=== PATIENT | male | born 1950 | race Caucasian/White ===

== ENCOUNTER 2016-11-12 08:26 | Emergency (ER) | payer OTHER ==
[~2016-11-12] VITALS: Ht 170.2 cm; Wt 108.0 kg
[~2016-11-12 08:26] MED LIST: ASPI325T PO; CITA20 PO; GABA600T PO; METF500 PO; MOBI7.5T PO; NORC10TA2 PO; TAB-TAB PO; VITA100T65 PO
[2016-11-12 08:30] VITALS: BP 195/101; PULSE 77; RESP 15; TEMP 98.3; O2SAT 96
[2016-11-12] MEDS ORDERED: PANT40TA3 PO (08:52)
[2016-11-12] MEDS ORDERED: NATU400T PO (08:52)
[2016-11-12] MEDS ORDERED: MULT1TAB85 PO (08:52)
[2016-11-12] MEDS ORDERED: METF500T PO (08:52)
[2016-11-12] MEDS ORDERED: TIZA4TAB PO (08:52)
[2016-11-12] MEDS ORDERED: ASPI325T PO (08:52)
[2016-11-12] MEDS ORDERED: HYDR-3366 PO (08:52)
[2016-11-12] MEDS ORDERED: PRAV40TA2 PO (08:52)
[2016-11-12] MEDS ORDERED: GABA600T PO (08:52)
--- NOTE | 2016-11-12 08:55 | PD ---
HPI Chief Complaint: Injury Time Seen by Provider: 08:41 Travel History International Travel<30 days: No Contact w/Intl Traveler<30days: No Traveled to known affect area: No History of Present Illness HPI 66-year-old male with history of left shoulder replacement many years ago, frequent left shoulder dislocation, presents to the ER today because he states that he was reaching above head and his left shoulder dislocated again this morning. He denies any other issues or injuries. He states the pain is currently a 5 out of 10, hurts with movement. Modifying Factors: None Associated Signs & Symptoms: Left shoulder dislocation Risk Factors: History of shoulder dislocations, status post left shoulder replacement PFSH Past Medical History Anxiety: Yes Diabetes: Yes Patient Takes Glucophage: Yes Influenza Vaccination: No ?: Not Past Surgical History Cholecystectomy: Yes Social History Alcohol Use: Yes Tobacco Use: No Substance Use: No Allergies-Medications (Allergen,Severity, Reaction): Coded Allergies: No Known Allergies (Unverified , 11/12/16) Reported Meds & Prescriptions Reported Meds & Active Scripts Active Reported Aspirin 325 Mg Tab 325 Mg PO DAILY Multivitamin Men (Multiple Vitamins W/ Minerals) 1 Tab Tab 1 Tab PO DAILY Vitamin E 400 Unit Tab 400 Units PO DAILY Tizanidine (Tizanidine HCl) 4 Mg Tab 4 Mg PO TID Pravastatin 40 Mg Tab 40 Mg PO DAILY Gabapentin 600 Mg Tab 600 Mg PO TID Pantoprazole (Pantoprazole Sodium) 40 Mg Tab 40 Mg PO DAILY Metformin (Metformin HCl) 500 Mg Tab 500 Mg PO DAILY With a meal [place] (Hydrocodone-Acetaminophen) 10-325 Mg Tab 1 Tab PO Q8HR PRN Review of Systems Except as stated in HPI: all other systems reviewed are Neg Physical Exam Narrative GENERAL: Pleasant elderly white male patient currently in moderate distress, holding his left shoulder to the side flexed. Awake and oriented 3. SKIN: Warm and dry. HEAD: Atraumatic. Normocephalic. EYES: Pupils equal and round. No scleral icterus. No injection or drainage. ENT: No nasal bleeding or discharge. Mucous membranes pink and moist. NECK: Trachea midline. No JVD. CARDIOVASCULAR: Regular rate and rhythm. No murmur appreciated. RESPIRATORY: No accessory muscle use. Clear to auscultation. Breath sounds equal bilaterally. GASTROINTESTINAL: Abdomen soft, non-tender, nondistended. Hepatic and splenic margins not palpable. MUSCULOSKELETAL: No obvious deformities. No clubbing. No cyanosis. No edema. NEUROLOGICAL: Awake and alert. No obvious cranial nerve deficits. Motor grossly within normal limits. Normal speech. PSYCHIATRIC: Appropriate mood and affect; insight and judgment normal. Left shoulder: Humeral head is palpable anterior to the joint. He is unable to abduct or rotate the shoulder. He is neurovascularly intact with good pulses below the shoulder area. Data Data Last Documented VS Vital Signs Date Time Temp Pulse Resp B/P Pulse Ox O2 Delivery O2 Flow Rate FiO2 11/12/16 08:48 Room Air 11/12/16 08:30 98.3 77 15 195/101 96 Orders Shoulder, Complete (>2vws) (11/12/16 08:45) [facility] Medical Decision Making Medical Screen Exam Complete: Yes Emergency Medical Condition: Yes Medical Record Reviewed: Yes Differential Diagnosis Left shoulder pain/dislocation Narrative Course Left shoulder was reduced by me in the ER. Patient tolerated procedure well. X -ray was done post procedure. It shows good alignment. At this point, my plan would be to release the patient with follow-up to orthopedics. Return for any worsening in pain or new symptoms as needed. The plan has been discussed with him and he states understanding. Procedures Procedure Narrative Left shoulder dislocation/reduction: Patient is placed in a seated position, and left shoulder was externally rotated and humeral head was reduced back in to anatomical position. Patient tolerated procedure well. He was able to adduct and rotate shoulder after the procedure. Neurovascularly intact with good pulses postprocedure. Diagnosis Primary Impression: Recurrent dislocation, left shoulder Med/Other Pt SpecificInfo: Prescription(s) given Scripts Hydrocodone-Acetaminophen (Lortab)5-325 Mg Tab1 Tab PO Q6H PRN (PAIN) #10 TAB Ref 0 Prov:Rony Rodriguez MD 11/12/16 Disposition: 01 DISCHARGE HOME Condition: Stable Rony Rodriguez MD Nov 12, 2016 08:55
--- NOTE | 2016-11-12 09:14 | RADHPO ---
EXAM DATE/TIME: 11/12/2016 08:47 [facility] COMPARISON: SHOULDER LEFT COMPLETE (>2VWS), May 28, 2016, 14:56. INDICATIONS : Left shoulder pain. Patient states it popped out of place. MEDICAL HISTORY : Left shoulder dislocation. SURGICAL HISTORY : Left shoulder replacment. ENCOUNTER: Initial ACUITY: 1 day PAIN SCORE: 3/10 LOCATION: Left shoulder. FINDINGS: Multiple view examination of the left shoulder demonstrates stable appearance of a total shoulder pro sthesis without evidence of fracture or dislocation. . Bony mineralization is normal. CONCLUSION: Stable appearance of a total left shoulder prosthesis with anatomic alignment.. Erica Dowling MD on November 12, 2016 at 9:11 Board Certified Radiologist. This report was verified electronically.
[2016-11-12] MEDS ORDERED: HYDR-3533 PO (09:19)
== END 2016-11-12 09:31 | disposition home or self-care (01) ==
LOC: PHED 08:26
DX: M24.412 Recurrent dislocation, left shoulder (principal)
CPT/HCPCS: 23650; 73030

== ENCOUNTER 2017-03-05 14:21 | Emergency (ER) | payer OTHER ==
[~2017-03-05] VITALS: Ht 170.2 cm; Wt 109.9 kg
[~2017-03-05 14:21] MED LIST changes: -CITA20 PO; +HYDR-3366 PO; +HYDR-3533 PO; -METF500 PO; +METF500T PO; -MOBI7.5T PO; +MULT1TAB85 PO; +NATU400T PO; -NORC10TA2 PO; +PANT40TA3 PO; +PRAV40TA2 PO; -TAB-TAB PO; +TIZA4TAB PO; -VITA100T65 PO
[2017-03-05 14:26] VITALS: BP 152/113; PULSE 98; RESP 18; TEMP 98.4; O2SAT 95
[2017-03-05] MEDS ORDERED: VITA100T65 PO (14:36)
[2017-03-05] MEDS ORDERED: OXYC1CAP PO (14:36)
[2017-03-05] MEDS ORDERED: FAMOTIDINE 20 MG/2 ML VIAL IV PUSH ONE (14:45)
[2017-03-05] MEDS ORDERED: methylPREDNISolone SOD SUCC 125 MG/2 ML VIAL IVP ONE (14:45)
[2017-03-05] MEDS ORDERED: diphenhydrAMINE HCL 50 MG/ML VIAL IVP ONE (14:45)
--- NOTE | 2017-03-05 14:59 | PD ---
HPI Chief Complaint: Skin Problem Time Seen by Provider: 14:56 Travel History International Travel<30 days: No Contact w/Intl Traveler<30days: No Traveled to known affect area: No History of Present Illness HPI 66-year-old male that presents to the ED for evaluation of possible skin allergic reaction. Patient has a rash that he developed today. Patient states taking no new medications. He did have recent surgery on his left shoulder about a week ago. Patient has had no issues since. Patient actually has an appointment with his surgeon tomorrow. Patient had surgery on his shoulder secondary to multiple dislocations. He states that the only thing that has changes his Lortab was changed to oxycodone and he is taken this before. He denies any new foods, clothes, perfumes or environments. Per patient seemed like it started on his head and any movement to his body. Patient has a remote arms, torso as well as the legs. No fevers chills or sweats. No chest pain or shortness of breath. No recent travel. No allergies to medication. PFSH Past Medical History Hx Anticoagulant Therapy: Yes Anxiety: Yes Cardiovascular Problems: Yes Cerebrovascular Accident: Yes Diabetes: Yes Patient Takes Glucophage: Yes Past Surgical History Cholecystectomy: Yes Social History Alcohol Use: Yes Tobacco Use: No Substance Use: No Allergies-Medications (Allergen,Severity, Reaction): Coded Allergies: No Known Allergies (Unverified , 03/05/17) Reported Meds & Prescriptions Reported Meds & Active Scripts Active Epipen 2-Coy Inj (Epinephrine) 0.3 Mg/0.3 Ml Pfpen 0.3 Mg SQ ONCE PRN Ranitidine (Ranitidine HCl) 150 Mg Tab 150 Mg PO BID Vistaril (Hydroxyzine Pamoate) 50 Mg Cap 50 Mg PO QID PRN Prednisone 20 Mg Tab 20 Mg PO BID Reported Vitamin E 100 Unit Tab 100 Units PO DAILY Oxycodone (Oxycodone HCl) 5 Mg Cap 5 Mg PO Q6H PRN Aspirin 325 Mg Tab 325 Mg PO DAILY Gabapentin 600 Mg Tab 600 Mg PO TID Pantoprazole (Pantoprazole Sodium) 40 Mg Tab 40 Mg PO DAILY Metformin (Metformin HCl) 500 Mg Tab 500 Mg PO DAILY With a meal Review of Systems Except as stated in HPI: all other systems reviewed are Neg Physical Exam Narrative GENERAL: SKIN: Warm and dry. Patient has what appears to be a heavy-looking rash on the upper and lower extremities. Also the back and torso. Pruritic and not painful. HEAD: Atraumatic. Normocephalic. EYES: Pupils equal and round. No scleral icterus. No injection or drainage. ENT: No nasal bleeding or discharge. Mucous membranes pink and moist. Tongue is midline. No uvula deviation. NECK: Trachea midline. No JVD. CARDIOVASCULAR: Regular rate and rhythm. RESPIRATORY: No accessory muscle use. Clear to auscultation. Breath sounds equal bilaterally. GASTROINTESTINAL: Abdomen soft, non-tender, nondistended. Hepatic and splenic margins not palpable. MUSCULOSKELETAL: Extremities without clubbing, cyanosis, or edema. No obvious deformities. NEUROLOGICAL: Awake and alert. No obvious cranial nerve deficits. Motor grossly within normal limits. Five out of 5 muscle strength in the arms and legs. Normal speech. PSYCHIATRIC: Appropriate mood and affect; insight and judgment normal. Data Data Last Documented VS Vital Signs Date Time Temp Pulse Resp B/P Pulse Ox O2 Delivery O2 Flow Rate FiO2 03/05/17 14:26 98.4 98 18 152/113 95 Orders Basic Metabolic Panel (Bmp) (03/05/17 14:42) Complete Blood Count With Diff (03/05/17 14:42) Iv Access Insert/Monitor (03/05/17 14:42) Diphenhydramine Inj (Benadryl Inj) (03/05/17 14:45) Methylprednisolone So Succ Inj (Solumedr (03/05/17 14:45) Famotidine Inj (Pepcid Inj) (03/05/17 14:45) Labs Laboratory Tests Test 03/05/17 14:55 White Blood Count 8.0 TH/MM3 Red Blood Count 3.84 MIL/MM3 Hemoglobin 11.8 GM/DL Hematocrit 34.2 % Mean Corpuscular Volume 89.2 FL Mean Corpuscular Hemoglobin 30.7 PG Mean Corpuscular Hemoglobin 34.4 % Concent Red Cell Distribution Width 12.3 % Platelet Count 177 TH/MM3 Mean Platelet Volume 8.4 FL Neutrophils (%) (Auto) 80.5 % Lymphocytes (%) (Auto) 12.8 % Monocytes (%) (Auto) 4.7 % Eosinophils (%) (Auto) 1.3 % Basophils (%) (Auto) 0.7 % Neutrophils # (Auto) 6.4 TH/MM3 Lymphocytes # (Auto) 1.0 TH/MM3 Monocytes # (Auto) 0.4 TH/MM3 Eosinophils # (Auto) 0.1 TH/MM3 Basophils # (Auto) 0.1 TH/MM3 CBC Comment DIFF FINAL Differential Comment Sodium Level 140 MEQ/L Potassium Level 4.2 MEQ/L Chloride Level 107 MEQ/L Carbon Dioxide Level 25.9 MEQ/L Anion Gap 7 MEQ/L Blood Urea Nitrogen 13 MG/DL Creatinine 0.72 MG/DL Estimat Glomerular Filtration 110 ML/MIN Rate Random Glucose 192 MG/DL Calcium Level 8.6 MG/DL MDM Medical Decision Making Medical Screen Exam Complete: Yes Emergency Medical Condition: Yes Medical Record Reviewed: Yes Interpretation(s) CBC & BMP Diagram 03/05/17 14:55 Differential Diagnosis Allergic reaction versus anaphylaxis versus dermatitis versus allergic dermatitis Narrative Course 66-year-old male that presents ED for evaluation of allergic reaction. Patient was properly examined and was found to have signs and symptoms which appear to be consistent with allergic reaction. Unclear etiology. Patient did have just surgery. Does not appear to be cellulitis versus infection. Patient's vitals are stable and he has no signs of anaphylaxis. He did took an Radha before coming. CBC & BMP was ordered. Patient was given IV Solu-Medrol, Benadryl, Zantac. Labs showed Diagnosis Primary Impression: Allergic reaction Qualified Code: T78.40XA - Allergic reaction, initial encounter Patient Instructions: General Instructions Additional Instructions: Take medications as prescribed. Only use the vistaril or benadryl not both at the same time. Only use this two meds as needed if the rash still present or you have itch. otherwise no need to use. Finish prednisone until completion. Only use EpiPen if worsening symptoms. Med/Other Pt SpecificInfo: Prescription(s) given Scripts Epinephrine Inj (Epipen 2-Coy Inj)0.3 Mg/0.3 Ml Pfpen0.3 Mg SQ ONCE PRN ( ALLERGIC REACTION) #1 PACK Ref 0 Prov:Rony Rodriguez MD 03/05/17 Ranitidine 150 Mg [id number] Mg PO BID #20 TAB Ref 0 Prov:Rony Rodriguez MD 03/05/17 Hydroxyzine Pamoate (Vistaril)50 Mg Cap50 Mg PO QID PRN (ALLERGIC REACTION) #20 CAP Ref 0 Prov:Rony Rodriguez MD 03/05/17 Prednisone 20 Mg Tab20 Mg PO BID #10 TAB Prov:Rony Rodriguez MD 03/05/17 Disposition: 01 DISCHARGE HOME Condition: Stable Art De La O Mar 05, 2017 14:59
[2017-03-05 15:16] LABS: AUTOMATED NEUTROPHIL # 6.4 TH/MM3 (1.8-7.7); BASOPHIL # 0.1 TH/MM3 (0-0.2); BASOPHIL % 0.7 % (0.0-2.0); EOSINOPHIL # 0.1 TH/MM3 (0-0.4); EOSINOPHIL % 1.3 % (0.0-4.0); HEMATOCRIT 34.2 % (39.0-51.0); HEMO FLAGS DIFF FINAL; LYMPH % 12.8 % (9.0-44.0); MEAN CELL VOLUME 89.2 FL (80.0-100.0); MEAN CORPUSCULAR HEMOGLOBIN 30.7 PG (27.0-34.0); MEAN CORPUSCULAR HGB CONC 34.4 % (32.0-36.0); MONO % 4.7 % (0.0-8.0); NEUT % 80.5 % (16.0-70.0); PLATELET COUNT 177 TH/MM3 (150-450); RED BLOOD COUNT 3.84 MIL/MM3 (4.50-5.90); RED CELL DISTRIBUTION WIDTH 12.3 % (11.6-17.2)
[2017-03-05 15:27] LABS: POTASSIUM 4.2 MEQ/L (3.5-5.1)
[2017-03-05 15:30] LABS: BICARBONATE 25.9 MEQ/L (21.0-32.0)
[2017-03-05] MEDS ORDERED: RANI150T PO (15:39)
[2017-03-05] MEDS ORDERED: PRED20 PO (15:39)
[2017-03-05] MEDS ORDERED: VIST50CA PO (15:39)
[2017-03-05] MEDS ORDERED: EPIP0.3I SQ (15:39)
== END 2017-03-05 15:52 | disposition home or self-care (01) ==
LOC: PHEFT 14:21
DX: T78.40XA Allergy, unspecified, initial encounter (principal); E11.9 Type 2 diabetes mellitus without complications; Z98.890 Other specified postprocedural states; Z79.01 Long term (current) use of anticoagulants; Z79.84 Long term (current) use of oral hypoglycemic drugs; Z86.59 Personal history of other mental and behavioral disorders; Z86.79 Personal history of other diseases of the circulatory system
CPT/HCPCS: 80048; 85025; 96374; 96375; 99284; J1200; J2930

== ENCOUNTER 2017-05-10 00:21 | Emergency (ER) | payer OTHER ==
[~2017-05-10] VITALS: Ht 170.2 cm; Wt 109.2 kg
[~2017-05-10 00:21] MED LIST changes: +EPIP0.3I SQ; -HYDR-3366 PO; -HYDR-3533 PO; -MULT1TAB85 PO; -NATU400T PO; +OXYC1CAP PO; -PRAV40TA2 PO; +PRED20 PO; +RANI150T PO; -TIZA4TAB PO; +VIST50CA PO; +VITA100T65 PO
[2017-05-10 00:30] VITALS: BP 222/105; PULSE 86; RESP 18; TEMP 98.6; O2SAT 95
[2017-05-10] MEDS ORDERED: ONDANSETRON HCL 4 MG/2 ML VIAL IV PUSH ONE (01:00)
[2017-05-10] MEDS ORDERED: MORPHINE SULFATE 4 MG/ML INJ IV PUSH ONE (01:00)
[2017-05-10] MEDS ORDERED: HYDR-3583 PO (01:06)
[2017-05-10 01:08] VITALS: PULSE 80; RESP 16; O2SAT 98
--- NOTE | 2017-05-10 01:12 | PD ---
HPI Chief Complaint: Injury Time Seen by Provider: 00:46 Travel History International Travel<30 days: No Contact w/Intl Traveler<30days: No Traveled to known affect area: No History of Present Illness HPI 66-year-old male presents to the emergency department by private transportation for complaint of dislocation of his left shoulder. Patient has had multiple dislocations of the shoulder in the past. Patient's had previous shoulder surgery in the past due to repetitive dislocations and continued to have recurrent shoulder dislocations therefore underwent repeat shoulder repair December 2015 and has not had any issues with subluxation or dislocations shoulder since that time until this evening. Patient was just getting out of bed when he felt the joint separate and dislocate. Patient denies other concerns or complaints. Patient denies any upper extremity numbness tingling or weakness. Patient rates pain 10 over 10 in intensity. PFSH Past Medical History Narrative Medical Diabetes CVA recurrent left shoulder dislocation status post surgery 2; nursing notes reviewed Hx Anticoagulant Therapy: Yes Anxiety: Yes Cardiovascular Problems: Yes Cerebrovascular Accident: Yes Diabetes: Yes Past Surgical History Cholecystectomy: Yes Social History Alcohol Use: Yes Tobacco Use: No Substance Use: No Allergies-Medications (Allergen,Severity, Reaction): Coded Allergies: No Known Allergies (Unverified , 03/05/17) Reported Meds & Prescriptions Reported Meds & Active Scripts Active Zofran Odt (Ondansetron Odt) 4 Mg Tab 4 Mg SL Q6HR PRN Lortab (Hydrocodone-Acetaminophen) 5-325 Mg Tab 1 Tab PO Q6H PRN Epipen 2-Coy Inj (Epinephrine) 0.3 Mg/0.3 Ml Pfpen 0.3 Mg SQ ONCE PRN Ranitidine (Ranitidine HCl) 150 Mg Tab 150 Mg PO BID Vistaril (Hydroxyzine Pamoate) 50 Mg Cap 50 Mg PO QID PRN Reported Hydrocodone-Acetaminophen 10-325 mg Tab 1 Tab PO Q4H PRN Vitamin E 100 Unit Tab 100 Units PO DAILY Aspirin 325 Mg Tab 325 Mg PO DAILY Gabapentin 600 Mg Tab 800 Mg PO TID Pantoprazole (Pantoprazole Sodium) 40 Mg Tab 40 Mg PO DAILY Metformin (Metformin HCl) 500 Mg Tab 500 Mg PO DAILY With a meal Review of Systems Except as stated in HPI: all other systems reviewed are Neg General / Constitutional: No: Fever, Chills HENT: No: Congestion Cardiovascular: No: Chest Pain or Discomfort Gastrointestinal: No: Vomiting, Abdominal Pain Genitourinary: No: Flank Pain Musculoskeletal: Positive: Pain (left shoulder) Skin: No Rash Neurologic: No: Weakness, Paresthesia Psychiatric: No: Anxiety Hematologic/Lymphatic: No: Lymph Node Enlargement Physical Exam Narrative GENERAL: Well-developed well-nourished in obvious discomfort with left shoulder step-off deformity SKIN: Warm and dry. HEAD: Normocephalic. EYES: No scleral icterus. No injection or drainage. NECK: Supple, trachea midline. No JVD or lymphadenopathy. CARDIOVASCULAR: Regular rate and rhythm without murmurs, gallops, or rubs. RESPIRATORY: Breath sounds equal bilaterally. No accessory muscle use. GASTROINTESTINAL: Abdomen soft, non-tender, nondistended. MUSCULOSKELETAL: No cyanosis, or edema. Step-off deformity of the left shoulder distally extremity is neurovascular tendon intact with brisk capillary refill per digit radial pulse 2+ to palpation intact physician wrist extension and sensory exam intact BACK: Nontender without obvious deformity. No CVA tenderness. Data Data Last Documented VS Vital Signs Date Time Temp Pulse Resp B/P (MAP) Pulse Ox O2 Delivery O2 Flow Rate FiO2 05/10/17 03:04 05/10/17 02:52 77 18 99 Room Air 05/10/17 01:43 2.00 05/10/17 00:30 98.6 Orders Orders Ondansetron Inj (Zofran Inj) (05/10/17 01:00) Morphine Inj (Morphine Inj) (05/10/17 01:00) Ice/Cold Pack (05/10/17 00:46) Shoulder, Limited(2vws) (05/10/17 ) Propofol 200 Mg/20 Ml Inj (Diprivan 200 (05/10/17 01:30) Shoulder, Limited(2vws) (05/10/17 ) MDM Medical Decision Making Medical Screen Exam Complete: Yes Emergency Medical Condition: Yes Medical Record Reviewed: Yes Interpretation(s) Last Impressions Shoulder X-Ray 05/10/17 0000 Signed Impressions: Service Date/Time: Wednesday, May 10, 2017 02:04 - CONCLUSION: Successful reduction of the dislocation. Harinder Anthony Jr., MD Shoulder X-Ray 05/10/17 0000 Signed Impressions: Service Date/Time: Wednesday, May 10, 2017 00:51 - CONCLUSION: Anterior dislocation involving a reversed humeral head prosthesis. Harinder Anthony Jr., MD Differential Diagnosis Shoulder strain, subluxation, dislocation, fracture Narrative Course Patient placed in upright sitting position and gentle external rotation maneuver attempted without success; post maneuver distally extremity remains neurovascular tendon intact; x-ray obtained without evidence of fracture but evidence of anterior dislocation; patient with ongoing complaint of left shoulder pain 10 over 10 intensity therefore IV access obtained patient administered morphine sulfate 3 mg IV along with 4 mg of Zofran After discussion of risk benefit patient agreed to proceed with procedural sedation in order to reduce dislocated shoulder. Procedures Procedure Narrative After the risks and benefits were discussed the following procedure was performed: MODERATE SEDATION: The patient was placed on a classroom monitor and pulse oximetry. An ambu bag and suction was immediately available at bedside. The patient was monitored by the nurse. Oxygen saturation, heart rate and blood pressure were monitored. Procedural sedation was achieved using propofol 80 mg IV. The patient was observed until awake and alert. Procedural Sedation time in attendance was 35 minutes. After informed verbal and written consent and following successful procedural sedation with patient and optimal supine position gentle traction countertraction maneuver was performed with successful clunk and noted anatomical alignment consistent with reduction left shoulder dislocation. Sling and swath was applied. Post procedure x-ray was ordered. Extremity remains neurovascularly tendon intact with 5 over 5 site manager strength and capillary refill brisk and less than 2 seconds per digit as well as radial pulse 2+ to palpation. Diagnosis Primary Impression: Recurrent dislocation, left shoulder Referrals: Orthopaedic Surgeon 1 day call office in the AM to schedule follow up Patient Instructions: General Instructions, Moderate Sedation (ED) Additional Instructions: Wear sling and swath at all times until follow-up with orthopedist Call orthopedist office in a.m. to schedule follow-up appointment Use ice intermittently for first 12-24 hours to area of soft tissue swelling and discomfort Take pain medication as prescribed as needed Use Zofran as prescribed as needed for nausea and/or vomiting Return to the emergency department for any concerns or change in condition Med/Other Pt SpecificInfo: Prescription(s) given Scripts Ondansetron Odt (Zofran Odt) 4 Mg Tab 4 MG SL Q6HR Y for Nausea/Vomiting, #10 TAB 0 Refills Prov: Diamond Vanessa MD 05/10/17 Hydrocodone-Acetaminophen (Lortab) 5-325 Mg Tab 1 TAB PO Q6H Y for PAIN, #10 TAB 0 Refills Prov: Diamond Vanessa MD 05/10/17 Disposition: 01 DISCHARGE HOME Condition: Stable Diamond Vanessa MD May 10, 2017 01:12
--- NOTE | 2017-05-10 01:20 | RADRPT ---
EXAM DATE/TIME: 05/10/2017 00:51 [facility] COMPARISON: No previous studies available for comparison. INDICATIONS : Left shoulder pain after fall. MEDICAL HISTORY : Left shoulder dislocation. SURGICAL HISTORY : Left shoulder replacment. ENCOUNTER: Initial ACUITY: 1 day PAIN SCORE: 10/10 LOCATION: Left shoulder. FINDINGS: 2 views reveal a reversed humeral head prosthesis. An anterior dislocation is observed. No fracture a ppreciated. Soft tissues are unremarkable. CONCLUSION: Anterior dislocation involving a reversed humeral head prosthesis. Harinder Anthony Jr., MD on May 10, 2017 at 1:18 Board Certified Radiologist. This report was verified electronically.
[2017-05-10] MEDS ORDERED: PROPOFOL 200 MG/20 ML AMP IV ONE (01:30)
[2017-05-10 01:43] VITALS: O2SAT 97
--- NOTE | 2017-05-10 02:35 | RADRPT ---
EXAM DATE/TIME: 05/10/2017 02:04 [facility] COMPARISON: SHOULDER LEFT LTD (2VWS), May 10, 2017, 0:51. INDICATIONS : Post reduction left shoulder. MEDICAL HISTORY : Left shoulder dislocation. SURGICAL HISTORY : Left shoulder replacement. ENCOUNTER: Subsequent ACUITY: 1 day PAIN SCORE: 5/10 LOCATION: Left shoulder. FINDINGS: 2 views of the left shoulder show successful reduction of the previously seen dislocation involving t he humeral head prosthesis. CONCLUSION: Successful reduction of the dislocation. Harinder Anthony Jr., MD on May 10, 2017 at 2:33 Board Certified Radiologist. This report was verified electronically.
[2017-05-10] MEDS ORDERED: ZOFR4TAB3 SL (02:47)
[2017-05-10] MEDS ORDERED: HYDR-3533 PO (02:47)
[2017-05-10 02:52] VITALS: BP 148/72; PULSE 77; RESP 18; O2SAT 99
== END 2017-05-10 03:05 | disposition home or self-care (01) ==
LOC: PHED 00:21
DX: M24.412 Recurrent dislocation, left shoulder (principal)
CPT/HCPCS: 23650; 73030; 96374; 96375; 99152; 99153; 99285; J2270; J2405

== ENCOUNTER 2017-08-02 07:45 | Day surgery (SDC) | payer OTHER ==
[~2017-08-02] VITALS: Ht 170.2 cm; Wt 107.5 kg
[~2017-08-02 07:45] MED LIST changes: +ASPI-183 PO; -ASPI325T PO; +HYDR-3533 PO; +HYDR-3583 PO; -OXYC1CAP PO; -PRED20 PO; +ZOFR4TAB3 SL
[2017-08-02] MEDS ORDERED: IOHEXOL 350 MG/ML 100 ML BTL (for Cath Lab) OTHER ONE (07:46)
[2017-08-02 08:30] LABS: AUTOMATED NEUTROPHIL # 3.5 TH/MM3 (1.8-7.7); BASOPHIL % 0.4 % (0.0-2.0); EOSINOPHIL # 0.3 TH/MM3 (0-0.4); EOSINOPHIL % 5.1 % (0.0-4.0); HEMATOCRIT 38.9 % (39.0-51.0); HEMO FLAGS DIFF FINAL; LYMPH % 27.5 % (9.0-44.0); LYMPHOCYTE # 1.6 TH/MM3 (1.0-4.8); MEAN CORPUSCULAR HEMOGLOBIN 31.3 PG (27.0-34.0); MEAN CORPUSCULAR HGB CONC 34.8 % (32.0-36.0); PLATELET COUNT 139 TH/MM3 (150-450); RED BLOOD COUNT 4.32 MIL/MM3 (4.50-5.90); RED CELL DISTRIBUTION WIDTH 13.6 % (11.6-17.2)
[2017-08-02 08:37] LABS: PROTHROMBIN TIME - PATIENT 10.4 SEC (9.8-11.6)
[2017-08-02 08:46] LABS: BICARBONATE 30.1 MEQ/L (21.0-32.0); POTASSIUM 4.3 MEQ/L (3.5-5.1)
[2017-08-02] MEDS ORDERED: NS 1000P @30 MLS/HR (KVO) IV SCH (09:00)
[2017-08-02] MEDS ORDERED: MIDAZOLAM HCL 2 MG/2 ML VIAL ONE (09:12)
[2017-08-02] MEDS ORDERED: HEPARIN-NS/PF INJ 1,000 ML ONE (09:12)
[2017-08-02] MEDS ORDERED: HEPARIN SODIUM - IV 10,000 UNITS/10 ML VIAL ONE (09:13)
[2017-08-02] MEDS ORDERED: NITROGLYCERIN INJ 5 ML ONE (09:13)
[2017-08-02] MEDS ORDERED: VERAPAMIL HCL 5 MG/2 ML VIAL ONE (09:13)
--- NOTE | 2017-08-02 10:26 | CATHPROC ---
[employer] HIS Report Study Information Study Number Admission Scheduled Start Study Start [id number] 08/02/2017 07/26/2017 Aug 02 2017 9:17AM Study Type [place] Service Left/Possible PCI Cardiac Catheterization Referring Institution Admit Source Facility Department 1 [facility] - Student Support Advisor Physician and Clinical Staff Initial Arnav Morgan Senior Mechanical Development Engineer Daysi Mancera BSN Recorder Stephany Solorio,PIANO INSTRUCTOR TECH2 Scrub Katie Nguyen,RT(R) (BS) Procedures Performed Procedure Location (Site) Vessel Name Coronary Angiograms LCA Left Coronary Coronary Angiograms RCA Right Coronary Coronary Angiograms Subclav. Art. (Rt.) Subclavian Art. Wire insertion Radial (right) Radial Art. Equipment Time Server Administrator Description Size Mfg Part Number Used/Scraped TRANSDUCER, TRUWALEJANDRA [id number] 09:18 [employer]OSCO HOLCOMB * Used W/STOCKCOCK *[id number] *[id number] *[id number] *[id number] WIRE, HYDROSTEER 150CM [id number] 09:46 DAIG/[employer]. [employer] 150CM Used ANGLED GLIDE *[id number] 09:18 [employer] IND[employer]ES PACK, CCL CUSTOM * Used *[id number] 09:18 [employer] SUPPORT, ARTERIAL ADULT [id number] *[id number] Used [id number] 10:06 MEDTRONIC AL 1 DXTERITY CATHETER FR 5 Used *[id number] 09:55 MEDTRONIC JL 3.5 DXTERITY CATHETER FR 5 [id number] Used BAND, RADIAL COMPRESSION TR [id number] 10:09 [employer] MEDICAL 29CM Used LARGE 29 *[id number] 09:18 [employer] WIRE, EXCHANGE 260CM 3MMJ 260CM Used *[id number] 09:18 NAMIC MANIFOLD, 4 PORT * Used *[id number] 09:18 [employer]COMED OMNIPAQUE, 350 MG, 150ML 150ML [id number] Used [id number] 09:18 [employer] MED[employer] BLANKET,WARM AIR CCL * Used *[id number] SHEATH, FR6 TRANSRADIAL RM*[id number] 09:18 [employer] MEDICAL FR 6 Used SLENDER 10CM *[id number] Equipment Model, Serial, Lot Number and Expiration Data Description Model Number Serial Number Lot Number Expiration Date WIRE, HYDROSTEER 150CM [id number] 04-20-2020 ANGLED GLIDE History: Current Medications Medication Dosage/Unit Route Frequency Last Date/Time Taken Glucophage ASA Statins (any) History: Allergies Allergy Reaction Lipitor Gadolinium Derivatives eye swelling History: Risk Factors Family History of Hypertension Dyslipidemia Previous IN Previous Heart Failure Premature CAD Yes Yes Yes No No Prior Valve Prior PCI Prior CABG Surgery No No No Cerebrovascular Peripheral Artery Chronic Lung On Dialysis Diabetes Diabetes Therapy Disease Disease Disease No Yes No No Yes Oral History: Symptoms/Diagnosis Selection Items LEDESMA History: Stress Tests Stress or Imaging Studies Performed Yes Standard Exercise Stress Test No Stress Echo No Stress Test SPECT Stress Test SPECT Result Stress Test SPECT Ischemia Risk/Extent Yes Positive Intermediate Stress Test CMR No Cardiac CTA Coronary Calcium Score No No History: Other Disease Selection Items Cancer Depression Gerd History: Other Current Smoker Method Quit Packs a Day Years Used Pack Years No Cigarettes 30 Years Ago 3 12 36 Labs Hgb (g/dl) Hct (%) WBC (l/cumm) Platelets (thousands) 11.60-17.00 35.00-51.00 4.00-11.00 150.00-450.00 13.5 38.9 6 139 Glucose (mg/dl) BUN (mg/dl) Creatinine (mg/dl) BUN:Creatinine (1:x) 74.00-106.00 7.00-18.00 0.50-1.30 10.00-20.00 111 14 0.7 20 Na (meq/l) K (meq/l) 136.00-145.00 3.50-5.10 141 4.3 INR (PTT:PT) 0.90-1.10 1 CPK-MB (ng/ML) 0.50-3.60 Not Drawn Medication Medication Total Dose (Bolus/Oral) Medication Total Dosage/Unit 1% XYLOCAINE 20 mL FENTANYL 50 mcg RADIAL COCKTAIL 5 mL (Bolus) VERSED 1 mg Medications (Bolus/Oral) Medication Time Given Dosage/Unit Administered By Reason 1% XYLOCAINE 08/02/2017 9:35:15 AM 20 mL Arnav Decker 20 mL 1% XYLOCAINE given in lab by Arnav Decker in Right Radial via Subcutaneous. Ordered by Arnav Tello VERSED 08/02/2017 9:35:23 AM 1 mg Matuszczak, Daysi 1 mg VERSED given in lab by Daysi Mancera BSN in Left Hand via Peripheral IV. Ordered by Arnav Dotson FENTANYL 08/02/2017 9:36:40 AM 50 mcg Daysi Mancera 50 mcg FENTANYL given in lab by Daysi Mancera BSN in Left Hand via Peripheral IV. Ordered by Arnav Tello RADIAL COCKTAIL 08/02/2017 9:43:51 AM 5 mL (Bolus) Arnav Decker 5 mL (Bolus) RADIAL COCKTAIL given in lab by Arnav Decker in Right Radial via Radial. Using [S olution Name]. Ordered by Arnav Decker Reason: Ntg 200mcg Verapamil 2.5mg Heparin 4300U. Medication (Drip) Medication Time Given Dosage/Unit Concentration/Unit Diluent (ml) Solution IV Solutions 08/02/2017 9:06:05 AM 0 mL (IV) 500 NaCl .9 Patient arrived on IV Solutions in Left Hand via Peripheral IV. Pump/Drip Flow = 20 ml/hr using NaCl .9. Initial Case Assessment Cardiovascular HR Rhythm NIBP Chest Pain 60 SR 183/94 0 Circulatory - Right Pulses Dorsalis Pedis Femoral Radial 1 2 2 Scale (0,1,2,3,4,d) Circulatory - Left Pulses Dorsalis Pedis Femoral Radial 1 2 Scale (0,1,2,3,4,d) Neurological State Oriented to time-place- Alert Moves all extremities person Respiration - General Respiration Rate SpO2 (%) (B/min) 11 98 Final Case Assessment Cardiovascular HR Rhythm NIBP Chest Pain 60 sr 144/84 0 Circulatory - Right Pulses Dorsalis Pedis Femoral Radial 1 2 2 Scale (0,1,2,3,4,d) Circulatory - Left Pulses Dorsalis Pedis Femoral Radial 1 2 Scale (0,1,2,3,4,d) Neurological State Oriented to time-place- Alert Moves all extremities person Respiration - General Respiration Rate SpO2 (%) (B/min) 13 97 Chronological Log Time Study Chronological Log 9:03:41 Patient arrived via Bed. 9:03:45 Patient Name, D.O.B, / Armband Verified By R.N. 9:05:01 Consent signed by the physician and the patient and verified by the Student Support Advisor staff. 9:05:57 Allens test performed on the right radial and ulnar artery. 9:05:59 Patient has been NPO for More than 6Hrs. 9:06:00 Skin Breakdown-NONE 9:06:01 Aruna Prominences Protected 9:06:04 A # 20 IV was noted in the Hand (left). Grade = PATENT 9:06:05 Patient arrived on IV Solutions in Left Hand via Peripheral IV. Pump/Drip Flow = 20 ml/hr us ing NaCl .9. 9:06:05 History and physical on the chart or being dictated. 9:07:01 Verbal Stimulation=2 Physical Stimulation=2 Airway=2 Respiration=2 TOTAL=8. (0=absent, 1=newell ited, 2=present) 9:10:51 Pre-op and post- op instructions given; patient acknowledges understanding of instructions. Vitals capture started with the following parameters, Patient=Adult, Interval=5 min, Initial Pre bextz=807 mmHg, 9:20:45 Deflation Rate=5 mmHg, Cuff placed on Left Arm 9:22:04 HR=58 bpm, BTNX=308/94 mmhg, SpO2=98.0 %, Resp=11 B/min, Pain=0, Tristan=10, Garza=2 Assessment: Initial Case, HR=60 BPM, Rhythm=SR, ZJKC=982/94 mmhg, Chest Pain=0 Right Pulses: Pablo Ped=1, Femoral=2, Radial=2 9:22:06 Left Pulses: Pablo Ped=1, Femoral=2 Neurological: State=Alert, Ox3, MOELLER Respiration: Resp=11 B/min, SpO2=98 % 9:23:08 Right groin and right wrist prepped with 2% chlorhexidine, and draped after a 3 min. waiting time. 9:26:34 HR=64 bpm, LRAC=751/94 mmhg, SpO2=97.0 %, Resp=10 B/min, Pain=0, Tristan=10, Garza=2 9:28:56 MD arrived. 9:29:56 Pressure channel 1 zeroed. 9:31:27 HR=66 bpm, RLPM=163/93 mmhg, SpO2=96.0 %, Resp=11 B/min 9:34:07 Reference ECG taken Time Out. Correct patient, correct procedure, correct physician, power injector not loaded with contrast with surgical 9:34:28 team present. Time Out Concurred by MD and individual staff in procedure. 9:35:14 Case Start 20 mL 1% XYLOCAINE given in lab by Arnav Decker in Right Radial via Subcutaneous. Ordered by Jeronimo 9:35:15 Arnav Odom 1 mg VERSED given in lab by Daysi Mancera BSN in Left Hand via Peripheral IV. Ordered by Arnav Decker 9:35:23 G. 50 mcg FENTANYL given in lab by Daysi Mancera BSN in Left Hand via Peripheral IV. Ordered by Jeronimo 9:36:40 Arnav Odom 9:37:01 HR=64 bpm, QPRC=424/92 mmhg, SpO2=97.0 %, Resp=13 B/min 9:41:27 HR=59 bpm, GASU=399/80 mmhg, SpO2=92.0 %, Resp=4 B/min 9:43:22 Access site was Radial Artery. Right A SHEATH, FR6 TRANSRADIAL SLENDER 10CM FR 6 was advanced into the Radial (right) using the Cassie jefferson 9:43:34 technique. 5 mL (Bolus) RADIAL COCKTAIL given in lab by Arnav Decker in Right Radial via Radial. Usi ng [Solution Name]. 9:43:51 Ordered by Arnav Decker Reason: Ntg 200mcg Verapamil 2.5mg Heparin 4300U. A JR 4.0 INFINITI CATHETER FR 5 was advanced over a wire. OMNIPAQUE, 350 MG, 150ML 150ML was use d for 9:44:46 injections. 9:46:22 The previous wire was exchanged for a WIRE, HYDROSTEER 150CM ANGLED GLIDE 150CM. 9:46:26 HR=66 bpm, XDCO=057/75 mmhg, SpO2=93.0 %, Resp=15 B/min 9:48:03 Wire removed 9:48:08 The Subclav. Art. (Rt.) was injected and visualized at various angles. OMNIPAQUE, 350 MG, 1 50ML 150ML used. 9:49:33 A WIRE, HYDROSTEER 150CM ANGLED GLIDE 150CM was inserted via Radial (right). 9:50:27 Wire removed Recorded Pressure: Ao, HR=63, Condition=Condition 1 9:51:15 (Aorta) Ao 121/67/90 9:51:27 HR=46 bpm, IHGN=323/79 mmhg, SpO2=93.0 %, Resp=14 B/min, Pain=0, Tristan=10, Garza=2 Recorded Pressure: LV, HR=60, Condition=Condition 1 9:51:48 (Left Ventricle) LV 139/10/14 Recorded Pressure: LV, Ao, HR=62, Condition=Condition 1 9:52:07 (Left Ventricle) LV 135/10/15, (Aorta) Ao 136/70/97 After removing the current catheter a JL 3.5 DXTERITY CATHETER FR 5 was advanced over a WIRE, E XCHANGE 260CM 9:54:04 3MMJ 260CM. Unable to cannulate RCA. 9:56:26 HR=55 bpm, SPNX=413/81 mmhg, SpO2=94.0 %, Resp=11 B/min 9:57:26 The LCA was injected and visualized at various angles. OMNIPAQUE, 350 MG, 150ML 150ML used . After removing the current catheter a 3DRC INFINITI CATHETER FR 5 was advanced over a WIRE, EXC HANGE 260CM 9:58:54 3MMJ 260CM. 10:01:28 HR=56 bpm, EAEZ=592/78 mmhg, SpO2=93.0 %, Resp=10 B/min After removing the current catheter a AL 1 DXTERITY CATHETER FR 5 was advanced over a WIRE, EXC HANGE 260CM 10:04:55 3MMJ 260CM. Unable to cannulate RCA. 10:06:31 HR=58 bpm, BLHI=424/84 mmhg, SpO2=94.0 %, Resp=12 B/min 10:08:18 The RCA was injected and visualized at various angles. OMNIPAQUE, 350 MG, 150ML 150ML used . 10:09:21 Catheter was removed over j wire 10:10:09 Case End Assessment: Final Case, HR=60 BPM, Rhythm=sr, PZFK=254/84 mmhg, Chest Pain=0 Right Pulses: Pablo Ped=1, Femoral=2, Radial=2 10:10:16 Left Pulses: Pablo Ped=1, Femoral=2 Neurological: State=Alert, Ox3, MOELLER Respiration: Resp=13 B/min, SpO2=97 % Radial Compression Device Used. 15 mLs of air placed in BAND, RADIAL COMPRESSION TR LARGE 29 29 CM. Affected 10:10:57 hand 97 % O2 saturation. 10:12:05 HR=54 bpm, SIQG=572/80 mmhg, SpO2=97.0 %, Resp=10 B/min 10:16:35 HR=55 bpm, DVQD=267/80 mmhg, SpO2=97.0 %, Resp=11 B/min 10:18:02 No case complications noted. 10:18:03 Cine recording checked. 10:18:05 Bedside Report will be given. 10:20:13 Patient moved to bed 10:21:37 Patient transported to DOCU End Study - Contrast Media Used In Study Contrast Total Opened (mL) Total Used (mL) Total Wasted (mL) Omnipaque 75 75 0 End Study - Maximum Contrast Load Max Contrast Load (mL) 767.9 End Study - Radiation Exposure Fluoro Time (minutes) 11.0 End Study - Sheaths Sheaths Pulled By Sheath Hold Time (min) Katie Nguyen End Study - Patient Disposition Complications Transferred To Interventional Outcome No Telemetry Bed No attempt made
[2017-08-02] MEDS ORDERED: METF500T PO (10:27)
[2017-08-02] MEDS ORDERED: MISC INFORMATION XX ONE (10:30)
--- NOTE | 2017-08-02 11:45 | MA ---
cc: ARNAV CALLAHAN DO DATE 08/02/2017 PROCEDURE Left heart catheterization, coronary angiogram, moderate sedation 35 minutes, ultrasound-guided access. PREPROCEDURE DIAGNOSIS Preoperative evaluation, abnormal stress test. POSTPROCEDURE DIAGNOSIS Mild coronary artery disease. MEDICATIONS 1. Versed 1 mg 2. Fentanyl 50 mcg 3. Heparin 4300 units 4. Nitro 200 mcg 5. Verapamil 2.5 mg CONTRAST 75 cc FLUOROSCOPY 11 minutes ANESTHESIA Moderate sedation 35 minutes ESTIMATED BLOOD LOSS 10 cc PROCEDURAL SUMMARY Lloyd Aaron is a pleasant 67-year-old male who sees Dr. Frey in the office and was noted to have an abnormal EKG for preoperative evaluation. Because of this, he was recommended stress testing which was found to be abnormal on the anterior portion of the heart. Because of this, he was recommended cardiac catheterization. The risks, benefits and alternatives were explained to him and he consented as such. He was brought to the lab and prepped in the usual sterile fashion. Right radial artery was accessed using a modified Seldinger technique and placement of a 5-Nigerian sheath. This was easily aspirated and flushed. The JR-4 was advanced to the right subclavian, but due to tortuosity, it was difficult to proceed. A Glidewire was used due to the significant tortuosity to get the JR-4 to the ascending aorta. The JR-4 was advanced across the aortic valve for measurement of the left ventricular pressure. It was pulled back across the aortic valve showing no significant gradient of aortic stenosis. JR-4 was unable to engage the RCA and so this was exchanged for a JL-3.5 which was used for selective angiography of the left coronary artery system. JL-3.5 was then exchanged for a 3DRC and finally an AL-1 for angiogram of the right coronary artery system. AL-1 was removed over a J-wire. A radial band was placed over the arteriotomy site for hemostasis. 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 FINDINGS Left main normal sized vessel with 10% disease distally. It trifurcates into an LAD, ramus and left circumflex. LAD. A normal-size vessel with a 20% lesion in the proximal portion and mild luminal irregularities throughout. Ramus. A normal-size vessel with mild luminal irregularities and no significant disease. Left circumflex. A normal sized vessel with mild luminal irregularities. It produces two obtuse marginales which have proximal takeoff and the second being larger than the first, but neither having significant disease. RCA, a high anterior takeoff. 20% lesion in the midportion. Overall, this is a dominant vessel with no significant disease. LVEDP 15. IMPRESSIONS 1. Preoperative evaluation for shoulder surgery. 2. Abnormal EKG. 3. Abnormal stress test. 4. Mild coronary artery disease by cardiac catheterization (August 02, 2017). RECOMMENDATIONS 1. Mr. Aaron underwent cardiac catheterization and during this was not found to have significant coronary artery disease. 2. He will follow up with Dr. Frey for consideration of risk assessment for shoulder surgery. 3. He will be discharged home today. Thank you for allowing me to see Lloyd Aaron. If there are any questions, please do not hesitate to call. Arnav Callahan DO VGP/DJL /10:51 AM /11:33 AM
--- NOTE | 2017-08-02 14:53 | EKG ---
Date Performed: 08/02/2017 Time Performed: 08:46:54 PTAGE: 67 years EKG: --- Warning: Data quality may affect interpretation --- Sinus rhythm Lead(s) unsuitable for analysis: V6 Left bundle branch block Possible inferior infarct - age undeter mined Abnormal ECG NO PREVIOUS TRACING DOCTOR: Scott Wu Interpretating Date/Time 08/02/2017 14:52:00
== END 2017-08-02 15:00 | disposition home or self-care (01) ==
LOC: HDIC 07:45 → HDOC 07:45
PROVIDERS: ATTEND Nuclear Medicine Nuclear Cardiology
DX: I25.10 Atherosclerotic heart disease of native coronary artery without angina pectoris (principal); R94.39 Abnormal result of other cardiovascular function study; E78.5 Hyperlipidemia, unspecified; K21.9 Gastro-esophageal reflux disease without esophagitis; E11.9 Type 2 diabetes mellitus without complications; Z79.4 Long term (current) use of insulin; Z79.82 Long term (current) use of aspirin
CPT/HCPCS: 80048; 85025; 85610; 93005; 93458; 99152; 99153; C1769; C1893; J1644; J2250; J3010; Q9967

== ENCOUNTER 2017-08-11 17:56 | Emergency (ER) | payer OTHER ==
[~2017-08-11] VITALS: Ht 170.2 cm; Wt 107.0 kg
[~2017-08-11 17:56] MED LIST changes: -HYDR-3533 PO; -RANI150T PO; -VIST50CA PO
[2017-08-11 18:07] VITALS: BP 176/88; PULSE 86; RESP 16; TEMP 98.6; O2SAT 95
[2017-08-11] MEDS ORDERED: MULT-65 PO (18:24)
[2017-08-11] MEDS ORDERED: PRAV40TA2 PO (18:24)
[2017-08-11] MEDS ORDERED: MELO15TA20 PO (18:24)
[2017-08-11] MEDS ORDERED: CELE20TA PO (18:24)
[2017-08-11] MEDS ORDERED: LOSA100T PO (18:24)
[2017-08-11] MEDS ORDERED: ROBA500T PO (19:02)
--- NOTE | 2017-08-11 19:03 | PD ---
HPI Chief Complaint: Musculoskeletal Complaint Time Seen by Provider: 18:54 Travel History International Travel<30 days: No Contact w/Intl Traveler<30days: No Traveled to known affect area: No History of Present Illness HPI 67-year-old male with left sided neck pain and muscle spasm times one day. He denies injury or trauma. He denies paresthesia or weakness of the upper extremities. He denies headache or midline neck pain. Symptoms are worse with motion of the neck and relieved with rest. Symptom severity is moderate. PFSH Past Medical History Hx Anticoagulant Therapy: Yes Anxiety: Yes Depression: Yes Cancer: Yes (lung) Cardiac Catheterization: Yes ("HAD AN ABLATION") Cardiovascular Problems: Yes High Cholesterol: Yes Chest Pain: No Cerebrovascular Accident: Yes (TIA) Diabetes: Yes Patient Takes Glucophage: Yes Gastrointestinal Disorders: No GERD: Yes Glaucoma: No Hepatitis: No Hiatal Hernia: No Hypertension: Yes Musculoskeletal: Yes (CHRONIC BACK PAIN, SEES PAIN MANAGEMENT) Integumentary: No Thyroid Disease: No Past Surgical History Cholecystectomy: Yes Other Surgery: Yes (LEFT SHOULDER: January) Social History Alcohol Use: Yes (FEW DRINKS PER WEEK) Tobacco Use: No (QUIT AGE 36) Substance Use: No Allergies-Medications (Allergen,Severity, Reaction): Coded Allergies: Gadolinium-Containing Contrast Medi (Verified Allergy, Unknown, HIVES, ) Reported Meds & Prescriptions Reported Meds & Active Scripts Active Metformin (Metformin HCl) 500 Mg Tab 500 Mg PO DAILY Do not restart until 08/04/17 With a meal Reported Multi-Vitamin Daily (Multiple Vitamin) 1 Tab Tab 1 Tab PO DAILY Meloxicam 15 Mg Tab 15 Mg PO DAILY Losartan (Losartan Potassium) 100 Mg Tab 100 Mg PO DAILY Pravastatin 40 Mg Tab 40 Mg PO DAILY Celexa (Citalopram Hydrobromide) 20 Mg Tab 20 Mg PO DAILY Hydrocodone-Acetaminophen 10-325 mg Tab 1 Tab PO Q4H PRN Vitamin E 100 Unit Tab 400 Units PO DAILY Aspirin 325 Mg Tab 325 Mg PO DAILY Gabapentin 600 Mg Tab 800 Mg PO BID Pantoprazole (Pantoprazole Sodium) 40 Mg Tab 40 Mg PO DAILY Review of Systems Except as stated in HPI: all other systems reviewed are Neg General / Constitutional: No: Fever Eyes: No: Visual changes HENT: No: Headaches Physical Exam Narrative GENERAL: Alert well-appearing male. SKIN: Warm and dry. HEAD: Normocephalic. EYES: No injection or drainage. NECK: Supple, trachea midline. No JVD or lymphadenopathy. Left-sided trapezius muscle spasm and tenderness. No cervical midline tenderness. CARDIOVASCULAR: Regular rate and rhythm RESPIRATORY: Breath sounds equal bilaterally. No accessory muscle use. GASTROINTESTINAL: Abdomen soft, non-tender, nondistended. MUSCULOSKELETAL: No cyanosis, or edema. Normal strength and sensation of extremities. Equal hand grasp. BACK: Nontender without obvious deformity. No CVA tenderness. Data Data Last Documented VS Vital Signs Date Time Temp Pulse Resp B/P (MAP) Pulse Ox O2 Delivery O2 Flow Rate FiO2 08/11/17 18:07 98.6 86 16 176/88 (117) 95 MDM Medical Decision Making Medical Screen Exam Complete: Yes Emergency Medical Condition: Yes Differential Diagnosis Cervical strain, trapezius muscle spasm, herniated disc Narrative Course 67 -year-old male with nontraumatic left-sided neck pain. On exam he is tender in spasm left trapezius muscle. No midline tenderness. This will be treated for neck strain Diagnosis Primary Impression: Cervical strain Qualified Codes: S16.1XXA - Strain of muscle, fascia and tendon at neck level , initial encounter Referrals: Primary Care Physician Scripts Methocarbamol (Robaxin) 500 Mg Tab 500 MG PO TID for Muscle Spasm for 4 Days, #12 TAB 0 Refills Prov: Henna Echols 08/11/17 Disposition: 01 DISCHARGE HOME Condition: Stable Henna Echols Aug 11, 2017 19:03
== END 2017-08-11 19:10 | disposition home or self-care (01) ==
LOC: PHED 17:56 → PHEFT 19:10
DX: S16.1XXA Strain of muscle, fascia and tendon at neck level, initial encounter (principal); F41.9 Anxiety disorder, unspecified; F32.9 Major depressive disorder, single episode, unspecified; E78.00 Pure hypercholesterolemia, unspecified; E11.9 Type 2 diabetes mellitus without complications; K21.9 Gastro-esophageal reflux disease without esophagitis; I10 Essential (primary) hypertension; Z86.73 Personal history of transient ischemic attack (TIA), and cerebral infarction without residual deficits; X58.XXXA Exposure to other specified factors, initial encounter
CPT/HCPCS: 99283